=== PATIENT | female | born 1975 | race Caucasian/White ===

== ENCOUNTER 2018-04-04 07:49 | Outpatient (CLI) | payer OTHER | END 2018-04-04 17:07 | disposition home or self-care (01) | LOC: RAD 07:49 | DX: M50.30 Other cervical disc degeneration, unspecified cervical region (principal); M51.34 Other intervertebral disc degeneration, thoracic region ==

== ENCOUNTER 2018-12-06 07:17 | Outpatient (CLI) | payer OTHER | END 2018-12-06 17:00 | disposition home or self-care (01) | LOC: MAMO-SONO 07:17 | DX: Z12.31 Encounter for screening mammogram for malignant neoplasm of breast (principal); N64.4 Mastodynia; N92.1 Excessive and frequent menstruation with irregular cycle ==

== ENCOUNTER → 2020-05-25 | Outpatient (CLI) | payer OTHER | END | disposition home or self-care (01) | LOC: MAMO-SONO 10:46 | PROVIDERS: ATTEND Obstetrics & Gynecology | DX: N60.02 Solitary cyst of left breast (principal); Z12.31 Encounter for screening mammogram for malignant neoplasm of breast; N64.59 Other signs and symptoms in breast; N64.4 Mastodynia ==

== ENCOUNTER 2021-02-08 08:00 | Outpatient (CLI) | payer OTHER | END 2021-02-08 08:30 | disposition home or self-care (01) | LOC: PPH VACUNA 08:00 | PROVIDERS: ATTEND Emergency Medicine Pediatric Emergency Medicine | DX: Z23 Encounter for immunization (principal) ==

== ENCOUNTER 2021-02-08 08:57 | Outpatient (CLI) | payer OTHER | END 2021-02-08 15:52 | disposition home or self-care (01) | LOC: SONOGRAMA 08:57 → MAMO-SONO 09:30 → SONOGRAMA 15:52 | PROVIDERS: ATTEND Obstetrics & Gynecology | DX: N92.1 Excessive and frequent menstruation with irregular cycle (principal) ==

== ENCOUNTER 2022-12-06 11:18 | Outpatient (CLI) | payer OTHER | END 2022-12-06 11:30 | disposition home or self-care (01) | LOC: MAMO-SONO 11:18 | PROVIDERS: ATTEND Obstetrics & Gynecology | DX: Z12.31 Encounter for screening mammogram for malignant neoplasm of breast (principal); N60.12 Diffuse cystic mastopathy of left breast; N60.11 Diffuse cystic mastopathy of right breast ==

== ENCOUNTER 2024-03-18 09:49 | Outpatient (CLI) | payer OTHER | END 2024-03-18 10:10 | disposition home or self-care (01) | LOC: MAMO-SONO 09:49 | PROVIDERS: ATTEND Obstetrics & Gynecology | DX: N60.11 Diffuse cystic mastopathy of right breast (principal); N60.12 Diffuse cystic mastopathy of left breast; Z12.31 Encounter for screening mammogram for malignant neoplasm of breast ==

== ENCOUNTER 2025-03-31 14:45 | Outpatient (CLI) | payer OTHER | END 2025-04-02 14:05 | disposition home or self-care (01) | LOC: MAMO-SONO 14:45 | PROVIDERS: ATTEND Obstetrics & Gynecology | DX: N60.11 Diffuse cystic mastopathy of right breast (principal); N60.12 Diffuse cystic mastopathy of left breast; Z12.31 Encounter for screening mammogram for malignant neoplasm of breast; I10 Essential (primary) hypertension; R87.810 Cervical high risk human papillomavirus (HPV) DNA test positive; N92.1 Excessive and frequent menstruation with irregular cycle ==